=== PATIENT | male | born 1950 | race American Indian/Alaskan Native ===

== ENCOUNTER 2018-09-01 03:54 | Emergency (ER) | payer MEDICARE, MEDICAID ==
[2018-09-01] MEDS ORDERED: Sodium Chloride 0.9% 1,000 ML IV SCH (04:15)
--- NOTE | 2018-09-01 04:18 | ED PDOC ---
Addendum entered and electronically signed by Radha Avendano MD 09/01/18 12:11: Addendum Addendum: 09/01/18 12:10 Dr. Burnham called back and is aware Original Note: Arrival/HPI <Radha Avendano - Last Filed: 09/01/18 12:10> - General Historian: Patient - History of Present Illness Narrative History of Present Illness (Text): 09/01/18 04:15 67 year old male, whose past medical history includes CVA, presents to the emergency department with nausea and dizziness. Patient states he suddenly found himself lightheaded. Patient also informs of having nausea at the same time, but denies any vomiting. Patient denies any fevers, chills, headache, chest pain, shortness of breath, cough, abdominal pain, diarrhea, back pain, neck pain, urinary/bowel changes, or any other complaint. Time/Duration: Prior to Arrival Context: Home <Jose A Ryder - Last Filed: 09/02/18 22:01> - General Chief Complaint: GI Problem Time Seen by Provider: 09/01/18 03:56 Past Medical History - Provider Review Nursing Documentation Reviewed: Yes - Cardiac Hx Hypertension: Yes - Neurological HX Cerebrovascular Accident: Yes (x2) - Hematological/Oncological Hx Hepatitis C: Yes - Psychiatric Hx Substance Use: No - Anesthesia Hx Anesthesia: No <Jose A Ryder - Last Filed: 09/02/18 22:01> Family/Social History - Physician Review Nursing Documentation Reviewed: Yes Family/Social History: No Known Family HX Smoking Status: Never Smoked Hx Alcohol Use: Yes Frequency of alcohol use: Daily Hx Substance Use: No <Jose A Ryder - Last Filed: 09/02/18 22:01> Allergies/Home Meds <Radha Avendano - Last Filed: 09/01/18 12:10> <Jose A Ryder - Last Filed: 09/02/18 22:01> Allergies/Adverse Reactions: Allergies No Known Allergies Allergy (Verified 09/02/18 08:29) Review of Systems - Physician Review All systems were reviewed & negative as marked: Yes - Review of Systems Constitutional: absent: Fevers, Night Sweats Respiratory: absent: SOB, Cough Cardiovascular: absent: Chest Pain Gastrointestinal: Nausea. absent: Abdominal Pain, Diarrhea, Vomiting Genitourinary Male: absent: Urinary Output Changes Musculoskeletal: absent: Back Pain, Neck Pain Neurological: Dizziness. absent: Headache <Jose A Ryder - Last Filed: 09/02/18 22:01> Physical Exam Vital Signs Temp Pulse Resp BP Pulse Ox 09/01/18 08:19 68 177/118 H 09/01/18 08:07 98.2 F 72 20 119/73 97 09/01/18 07:30 98.4 F 68 19 168/90 H 99 09/01/18 04:00 98.4 F 66 18 166/97 H 99 <Radha Avendano - Last Filed: 09/01/18 12:10> Vital Signs Reviewed: Yes Vital Signs Temp Pulse Resp BP Pulse Ox 09/01/18 04:00 98.4 F 66 18 166/97 H 99 Temperature: Afebrile Blood Pressure: Hypertensive Pulse: Regular Respiratory Rate: Normal Appearance: Positive for: Well-Appearing, Non-Toxic, Comfortable Pain Distress: None Mental Status: Positive for: Alert and Oriented X 3 - Systems Exam Head: Present: Atraumatic, Normocephalic Pupils: Present: PERRL Extroacular Muscles: Present: EOMI Conjunctiva: Present: Normal Mouth: Present: Moist Mucous Membranes Neck: Present: Normal Range of Motion Respiratory/Chest: Present: Clear to Auscultation, Good Air Exchange. No: Respiratory Distress, Accessory Muscle Use Cardiovascular: Present: Regular Rate and Rhythm, Normal S1, S2. No: Murmurs Abdomen: No: Tenderness, Distention, Peritoneal Signs Back: Present: Normal Inspection Upper Extremity: Present: Normal Inspection. No: Cyanosis, Edema Lower Extremity: Present: Normal Inspection. No: Edema Neurological: Present: Speech Normal Skin: Present: Warm, Dry, Normal Color. No: Rashes Psychiatric: Present: Alert, Oriented x 3, Normal Insight, Normal Concentration <Jose A Ryder - Last Filed: 09/02/18 22:01> Medical Decision Making ED Course and Treatment: 09/01/18 09:[address] Ryder as pending u/s. CT was ordered for hematuria and was preliminary read was negative. Final read is as follows.... PROCEDURE: CT Abdomen and Pelvis without intravenous contrast FINDINGS: LOWER THORAX: Unremarkable. LIVER: Unremarkable. No gross lesion or ductal dilatation. GALLBLADDER AND BILE DUCTS: Cholelithiasis. No mural thickening or pericholecystic fluid. PANCREAS: Unremarkable. No gross lesion or ductal dilatation. SPLEEN: Unremarkable. ADRENALS: Unremarkable. No mass. KIDNEYS AND URETERS: Right lower pole renal cortical cyst, 2.0 cm. This measures 12 Hounsfield units attenuation. No left renal mass. No calculus or hydronephrosis. No hydroureter or ureteral calculus. VASCULATURE: Unremarkable. No aortic aneurysm. Minimal calcified atheromatous plaque of the aorta and iliac vessels BOWEL: Unremarkable. No obstruction. No gross mural thickening. APPENDIX: Unremarkable. Normal appendix. PERITONEUM: Unremarkable. No free fluid. No free air. LYMPH NODES: Unremarkable. No enlarged lymph nodes. BLADDER: Unremarkable. REPRODUCTIVE: Mildly enlarged prostate. BONES: Widespread sclerotic lesions consistent with metastatic disease of uncertain origin. There is extensive involvement of the T10 vertebra and posterior element small on the left side. Smaller metastases are seen throughout all of the visualized osseous structures. OTHER FINDINGS: None. IMPRESSION: Low-density right lower pole renal mass most likely cyst. Correlate with ultrasound examination particularly in light of history of hematuria. Widespread sclerotic metastases of uncertain origin. Further evaluation advised. Cholelithiasis without evidence of cholecystitis. No evidence of urinary calculus or urinary tract obstruction. The preliminary findings for this examination were reported by [facility] at 6:17 a.m. on 09/01/2018. There is discordance of this report with the preliminary findings. Presence of sclerotic bony metastasis was not described in the preliminary report of this examination. Findings in this report were discussed by telephone with Dr. Avendano at 9:47 a.m. on 09/01/2018. 09/01/18 10:05 U/S IMPRESSION: Bilateral simple renal cortical cyst. Cholelithiasis without evidence of cholecystitis. No additional abnormality. 09/01/18 10:10 Spoke to patient in presence of nurse Dixon. Patient reports that he presented for back pain and vomiting that is now resolved. Denies weakness, numbness, tingling, bladder or bowel incontinence. Told patient that he has cancer in his bones with unknown primary origin. Based on history of enlarged prostate and hematuria, think cancer is likely prostate. Placed called to PMD Dr. Crawford for further recommendations. Paged Dr. Burnham as patient was referrred to [place] for CT by him. Patient reports baseline creatinine of 5. 09/01/18 10:[address] Crawford called back. He was made aware of metastatic cancer diagnosis,. He reports that patient has refused biopsy of prostate for years. Reports that he has Hep c and HIV. Agrees that with baseline labs and neurologically intact, can be discharged with oncologist Dr. Benito and Dr. burnham follow-up - Lab Interpretations Lab Results: 09/01/18 05:17 09/01/18 05:17 Lab Results 09/01/18 07:26: Blood Type Confirm AB POSITIVE 09/01/18 05:17: Sodium 139, Potassium 4.9, Chloride 104, Carbon Dioxide 24, Anion Gap 16, BUN 46 H, Creatinine 6.2 H, Est GFR ( Amer) 11, Est GFR (Non-Af Amer) 9, Random Glucose 107, Calcium 10.0, Total Bilirubin 0.4, AST 40, ALT 17, Alkaline Phosphatase 85, Troponin I 0.01, Total Protein 8.6 H, Albumin 4.7, Globulin 4.0, Albumin/Globulin Ratio 1.2, Triglycerides 78, Cholesterol 198, LDL Cholesterol Direct 75, HDL Cholesterol 98 H 09/01/18 05:17: PT 10.6, INR 0.92, APTT 25.5 09/01/18 05:17: WBC 4.0 L, RBC 3.84, Hgb 12.5 L, Hct 37.0 L, MCV 96.4, MCH 32.6, MCHC 33.8, RDW 12.9, Plt Count 171, MPV 8.9, Gran % 66.1, Lymph % (Auto) 26.8, Cottle % (Auto) 4.3, Eos % (Auto) 2.3, Baso % (Auto) 0.5, Gran # 2.62, Lymph # (Auto) 1.1 L, Cottle # (Auto) 0.2, Eos # (Auto) 0.1, Baso # (Auto) 0.02 09/01/18 04:40: Urine Color Yellow, Urine Appearance Clear, Urine pH 7.0, Ur Specific [place] 1.015, Urine Protein 100 H, Urine Glucose (UA) Negative, Urine Ketones Negative, Urine Blood Moderate H, Urine Nitrate Negative, Urine Bilirubin Negative, Urine Urobilinogen 0.2, Ur Leukocyte Esterase Negative, Urine RBC 10 - 15, Urine WBC 0 - 2, Ur Epithelial Cells 0 - 2, Urine Bacteria None 09/01/18 04:12: Blood Type AB POSITIVE, Antibody Screen Negative, BBK History Checked No verified bt - RAD Interpretation Radiology Orders: 09/01/18 04:12 HEAD W/O CONTRAST [CT] Stat 09/01/18 04:13 CHEST TWO VIEWS (PA/LAT) [RAD] Stat 09/01/18 05:35 ABD & PELVIS W/O PO OR IV CONT [CT] Stat 09/01/18 06:32 ABDOMEN COMPLETE [US] Stat - Medication Orders Current Medication Orders: Sodium Chloride (Sodium Chloride 0.9%) 1,000 mls @ 100 mls/hr IV .Q10H CK Last Admin: 09/01/18 05:28 Dose: 100 mls/hr eMAR Start Stop Document 09/01/18 05:28 SS (Rec: 09/01/18 05:28 SS [id number]) Intravenous Solution Start Date 09/01/18 Start Time 05:28 Discontinued Medications Amlodipine Besylate (Norvasc) 10 mg PO STAT STA Stop: 09/01/18 08:08 Last Admin: 09/01/18 08:19 Dose: 10 mg MAR Blood Pressure Document 09/01/18 08:19 (Rec: 09/01/18 08:19 EB [id number]) Blood Pressure Blood Pressure (100/60-150/90) 177/118 Lisinopril (Zestril) 20 mg PO STAT STA Stop: 09/01/18 08:08 Last Admin: 09/01/18 08:19 Dose: 20 mg MAR Pulse and Blood Pressure Document 09/01/18 08:19 EB (Rec: 09/01/18 08:19 EB [id number]) Pulse Pulse Rate (60-90) 68 Blood Pressure Blood Pressure (100/60-150/90) 177/118 Ondansetron HCl (Zofran Inj) 4 mg IVP STAT STA Stop: 09/01/18 04:14 Last Admin: 09/01/18 05:28 Dose: 4 mg IVP Administration Document 09/01/18 05:28 SS (Rec: 09/01/18 05:28 SS [id number]) Charges for Administration # of IVP Administrations 1 <Radha Avendano A - Last Filed: 09/01/18 12:10> ED Course and Treatment: 09/01/18 04:21 Impression: 67 year old male presents with dizziness and nausea. Plan: -- Head CT -- Labs -- EKG -- Zofran -- Urinalysis -- Reassess and disposition Progress Notes: 09/01/18 05:54 CT scan of the head. CLINICAL HISTORY: Dizziness TECHNIQUE: Multiple axial CT images were obtained through the brain without IV contrast material. COMMENTS: There is normal configuration of sella turcica. There are no intra or extra- axial collections. There is no mass effect or midline shift. There is no justyn dence of hematoma formation. No hydrocephalus is present. The ventricles are symmetrical. No abnormal calcifications are present. There is diffuse age-appropriate cerebellar and cerebral atrophy with proportionally dilated ventricles and cortical sulci. There are bilateral periventricular and subcortical white matter hypolucencies compatible with mild chronic microvascular disease. Otherwise, no significant focal abnormalities are seen either in the posterior fossa or supratentorial compartment. IMPRESSION: 1. Age-appropriate cerebellar and cerebral atrophy. 2. Mild chronic microvascular disease. 3. No evidence of acute intracranial pathology. 09/01/18 06:20 CT Abdomen and Pelvis reviewed, shows: The visualized lung bases are unremarkable. Normal unenhanced liver. Cholelithiasis and nondilated extrahepatic biliary system. Normal unenhanced spleen. Normal pancreas. Normal bilateral adrenal glands. Normal size of the right kidney. There is no right renal mass. There are no right renal calculi. There is no right hydronephrosis. Normal visualized right ureter. Normal size of the left kidney. There is no left renal mass. There are no left renal calculi. There is no left hydronephrosis. Normal visualized left ureter. Normal visualized stomach. Normal small intestine. Uncomplicated diverticulosis of the colon. The appendix is visualized and appears normal. There is no demonstrated peritoneal fluid. Normal abdominal aorta. Normal inferior vena cava. Normal retroperitoneum. Normal urinary bladder. There is no pelvic mass lesion or lymphadenopathy. There is no pelvic fluid. Moderate prostatomegaly. Normal abdominal wall. Normal osseous structures. IMPRESSION: Moderate prostatomegaly. No urolithiasis is seen. Electronically signed on Sep 01, 2018 6:17:58 AM EDT by: Bobby Wilhelm M.D., Certified by ABR, MSK, Neuroradiology - RAD Interpretation Radiology Orders: 09/01/18 04:12 HEAD W/O CONTRAST [CT] Stat 09/01/18 04:13 CHEST TWO VIEWS (PA/LAT) [RAD] Stat - Medication Orders Current Medication Orders: Sodium Chloride (Sodium Chloride 0.9%) 1,000 mls @ 100 mls/hr IV .Q10H CK Ondansetron HCl (Zofran Inj) 4 mg IVP STAT STA Stop: 09/01/18 04:14 <AlekseyJose A - Last Filed: 09/02/18 22:01> - Scribe Statement The provider has reviewed the documentation as recorded by the Scribe Tono Mchugh Provider Scribe Attestation: All medical record entries made by the Scribe were at my direction and personally dictated by me. I have reviewed the chart and agree that the record accurately reflects my personal performance of the history, physical exam, medical decision making, and the department course for this patient. I have also personally directed, reviewed, and agree with the discharge instructions and disposition. <AlekseyJose A - Last Filed: 09/02/18 22:01> Disposition/Present on Arrival - Present on Arrival Any Indicators Present on Arrival: No - Disposition Have Diagnosis and Disposition been Completed?: Yes Disposition Time: 10:43 Patient Plan: Discharge <DollydanielRadha Dinora - Last Filed: 09/01/18 12:10> - Present on Arrival Any Indicators Present on Arrival: No History of DVT/PE: No History of Uncontrolled Diabetes: No Urinary Catheter: No History of Decub. Ulcer: No History Surgical Site Infection Following: None - Disposition Have Diagnosis and Disposition been Completed?: Yes <AlekseyJose A - Last Filed: 09/02/18 22:01> - Disposition Diagnosis: Renal insufficiency, Bone metastasis, Enlarged prostate, Hematuria, Metastatic cancer Disposition: HOME/ ROUTINE Condition: GOOD Discharge Instructions (ExitCare): Chronic Kidney Disease, Bone Metastasis Additional Instructions: Follow-up with Dr. Crawford for further mgmt of your metastatic cancer. You must follow-up with Dr. Benito who is an oncologist and who can help manage your cancer. Follow-up with Dr. Burnham for further evaluation. Return to ED immediately with any worsening symptoms. Referrals: Pérez Crawford MD [Primary Care Provider] - Follow up with primary Rommel Burnham MD [Staff Provider] - Follow up with primary Forms: [employer] ([place]rainian)
[2018-09-01 05:31] LABS: URINE BILIRUBIN NEGATIVE (NEGATIVE); URINE BLOOD MODERATE (NEGATIVE); URINE GLUCOSE (UA) NEGATIVE (NEGATIVE); URINE LEUKOCYTE ESTERASE NEGATIVE Leu/uL (NEGATIVE); URINE PROTEIN 100 mg/dL (<30 mg/dL); URINE UROBILINOGEN 0.2 E.U./dL (<1 E.U./dL)
[2018-09-01 05:33] LABS: URINE APPEARANCE CLEAR (CLEAR); URINE COLOR YELLOW (YELLOW)
[2018-09-01 05:44] LABS: INR 0.92; PARTIAL THROMBOPLASTIN TIME 25.5 Seconds (25.1-36.5); PROTHROMBIN TIME 10.6 SECONDS (9.4-12.5)
[2018-09-01 05:45] LABS: ALB/GLOB RATIO 1.2 (1.1-1.8); ALBUMIN 4.7 g/dL (3.0-4.8)
[2018-09-01 05:49] LABS: BASO # 0.02 K/mm3 (0.0-2.0); BASO % 0.5 % (0.0-3.0); EOS # 0.1 (0.0-0.7); EOS % 2.3 % (1.5-5.0); GRAN # 2.62 (1.4-6.5); GRAN % 66.1 % (50.0-68.0); HEMOGLOBIN 12.5 g/dL (14.0-18.0); LYMPH # 1.1 (1.2-3.4); LYMPH % 26.8 % (22.0-35.0); MEAN CELL VOLUME 96.4 fl (80.0-105.0); MEAN CORPUSCULAR HEMOGLOBIN 32.6 pg (25.0-35.0); MEAN CORPUSCULAR HGB CONC 33.8 g/dl (31.0-37.0); MEAN PLATELET VOLUME 8.9 fl (7.0-11.0); MONO # 0.2 (0.1-0.6); MONO % 4.3 % (1.0-6.0); RBC 3.84 10^6/uL (3.5-6.1); RED CELL DISTRIBUTION WIDTH 12.9 % (11.5-14.5)
[2018-09-01 05:59] LABS: TROPONIN I 0.01 ng/mL
[2018-09-01 06:04] LABS: URINE EPITHELIAL CELLS 0 - 2 /hpf (0-5); URINE WBC 0 - 2 /hpf (0-6)
--- NOTE | 2018-09-01 08:21 | CARD ---
APPROVED REPORT Date of service: 09/01/2018 EKG Measurement Heart [id number] MA [id number] <Conclusion> Sinus bradycardia Left axis deviation Voltage criteria for left ventricular hypertrophy ASMI, age unknown Peaked T waves V 3 - 4, consider acute ischemia and hyperkalemia
--- NOTE | 2018-09-01 08:44 | CT ---
Date of service: 09/01/2018 PROCEDURE: CT HEAD WITHOUT CONTRAST. HISTORY: dizzy COMPARISON: None available. TECHNIQUE: Axial computed tomography images were obtained through the head/brain without intravenous contrast. Radiation dose: Total exam DLP = 864.22 mGy-cm. This CT exam was performed using one or more of the following dose reduction techniques: Automated exposure control, adjustment of the mA and/or kV according to patient size, and/or use of iterative reconstruction technique. FINDINGS: HEMORRHAGE: No intracranial hemorrhage. BRAIN: No mass effect or edema. Mild periventricular white matter lucency consistent with chronic microvascular ischemic change. No evidence of acute infarct. VENTRICLES: Unremarkable. No hydrocephalus. CALVARIUM: Unremarkable. PARANASAL SINUSES: Unremarkable as visualized. No significant inflammatory changes. MASTOID AIR CELLS: Unremarkable as visualized. No inflammatory changes. OTHER FINDINGS: None. IMPRESSION: No acute abnormality. Mild chronic microvascular white matter ischemic change. Otherwise unremarkable examination. The preliminary findings for this examination were reported by [facility] at 5:34 a.m. on 09/01/2018. There is concurrence of this report with the preliminary findings.
--- NOTE | 2018-09-01 09:53 | CT ---
Date of service: 09/01/2018 PROCEDURE: CT Abdomen and Pelvis without intravenous contrast HISTORY: hematuria COMPARISON: None. TECHNIQUE: Without contrast.. Contrast dose: 0 Radiation dose: Total exam DLP = 653.61 mGy-cm. This CT exam was performed using one or more of the following dose reduction techniques: Automated exposure control, adjustment of the mA and/or kV according to patient size, and/or use of iterative reconstruction technique. FINDINGS: LOWER THORAX: Unremarkable. LIVER: Unremarkable. No gross lesion or ductal dilatation. GALLBLADDER AND BILE DUCTS: Cholelithiasis. No mural thickening or pericholecystic fluid. PANCREAS: Unremarkable. No gross lesion or ductal dilatation. SPLEEN: Unremarkable. ADRENALS: Unremarkable. No mass. KIDNEYS AND URETERS: Right lower pole renal cortical cyst, 2.0 cm. This measures 12 Hounsfield units attenuation. No left renal mass. No calculus or hydronephrosis. No hydroureter or ureteral calculus. VASCULATURE: Unremarkable. No aortic aneurysm. Minimal calcified atheromatous plaque of the aorta and iliac vessels BOWEL: Unremarkable. No obstruction. No gross mural thickening. APPENDIX: Unremarkable. Normal appendix. PERITONEUM: Unremarkable. No free fluid. No free air. LYMPH NODES: Unremarkable. No enlarged lymph nodes. BLADDER: Unremarkable. REPRODUCTIVE: Mildly enlarged prostate. BONES: Widespread sclerotic lesions consistent with metastatic disease of uncertain origin. There is extensive involvement of the T10 vertebra and posterior element small on the left side. Smaller metastases are seen throughout all of the visualized osseous structures. OTHER FINDINGS: None. IMPRESSION: Low-density right lower pole renal mass most likely cyst. Correlate with ultrasound examination particularly in light of history of hematuria. Widespread sclerotic metastases of uncertain origin. Further evaluation advised. Cholelithiasis without evidence of cholecystitis. No evidence of urinary calculus or urinary tract obstruction. The preliminary findings for this examination were reported by [facility] at 6:17 a.m. on 09/01/2018. There is discordance of this report with the preliminary findings. Presence of sclerotic bony metastasis was not described in the preliminary report of this examination. Findings in this report were discussed by telephone with Dr. Avendano at 9:47 a.m. on 09/01/2018.
--- NOTE | 2018-09-01 10:07 | US ---
Date of service: 09/01/2018 HISTORY: abd pain COMPARISON: CT abdomen/pelvis 09/01/2018 TECHNIQUE: Sonographic evaluation of the abdomen. FINDINGS: LIVER: Measures 15.1 cm. Diffusely increased echogenicity of the liver parenchyma. Consistent with fatty infiltration. No mass. No intrahepatic biliary ductal dilatation. Smooth contour. Normal hepatopetal portal venous flow. GALLBLADDER: Cholelithiasis. No mural thickening. No pericholecystic fluid. Negative sonographic Davila sign. COMMON BILE DUCT: Measures 5 mm. No stones. No dilatation. PANCREAS: Unremarkable as visualized. No mass. No ductal dilatation. RIGHT KIDNEY: Measures 9.7cm. Normal cortical thickness and echogenicity. Lower pole cortical cyst, 2.0 cm. No other mass. No hydronephrosis. No calculus. LEFT KIDNEY: Measures 8.8cm. Normal cortical thickness and echogenicity. Upper pole simple cortical cyst, 1.6 cm. No solid mass. No calculus. No hydronephrosis. SPLEEN: Normal in size and contour. No mass. AORTA: No aneurysmal dilatation. IVC: Unremarkable. OTHER FINDINGS: None. IMPRESSION: Bilateral simple renal cortical cyst. Cholelithiasis without evidence of cholecystitis. No additional abnormality.
[2018-09-01 10:53] VITALS: TEMP 98.2; O2SAT 97; BMI 31.3
[2018-09-01 11:46] VITALS: BP 155/99; PULSE 81; RESP 19
--- NOTE | 2018-09-01 13:02 | RAD ---
Date of service: 09/01/2018 HISTORY: dizzy COMPARISON: No prior. TECHNIQUE: Chest PA and lateral FINDINGS: LUNGS: Minimal linear scar/atelectasis at left base. No pulmonary infiltrate. PLEURA: No significant pleural effusion identified. No pneumothorax apparent. CARDIOVASCULAR: No aortic atherosclerotic calcification present OSSEOUS STRUCTURES: No significant abnormalities. VISUALIZED UPPER ABDOMEN: Normal. OTHER FINDINGS: None. IMPRESSION: No active disease.
== END 2018-09-01 11:02 | disposition home or self-care (01) ==
LOC: ED 03:54 → MERGE 03:54 → ED 11:02
DX: N28.89 Other specified disorders of kidney and ureter (principal); N40.0 Benign prostatic hyperplasia without lower urinary tract symptoms; R31.9 Hematuria, unspecified; C79.51 Secondary malignant neoplasm of bone; I10 Essential (primary) hypertension; Z86.73 Personal history of transient ischemic attack (TIA), and cerebral infarction without residual deficits
CPT/HCPCS: 70450; 71046; 74176; 76700; 80053; 80061; 81001; 83036; 84484; 85025; 85610; 85730; 86850; 86900; 93005; 96374; 99284; J2405; J7030

== ENCOUNTER 2018-11-30 08:21 | Outpatient (CLI) | payer MEDICARE, MEDICAID | END 2018-11-30 08:22 | disposition home or self-care (01) | LOC: RAD 08:21 ==

== ENCOUNTER 2019-04-09 10:35 | Emergency (ER) | payer MEDICARE, MEDICAID ==
[2019-04-09 10:35] VITALS: BMI 31.3
[2019-04-09 10:43] VITALS: BP 141/80; PULSE 78; RESP 18; TEMP 99; O2SAT 98
--- NOTE | 2019-04-09 10:46 | ED PDOC ---
Arrival/HPI - General Chief Complaint: Cough, Cold, Congestion Time Seen by Provider: 04/09/19 10:36 Historian: Patient - History of Present Illness Narrative History of Present Illness (Text): 04/09/19 10:53 68-year-old male presents today with a one-week history of nasal congestion, sore throat and a 3-day history of cough with a yellow and white sputum. Patient denies shortness of breath. No chest pain. Patient denies fevers. No abdominal pain. No diarrhea. No vomiting. Patient denies sick contacts. No other complaints. Time/Duration: 1 week Symptom Onset: Gradual Symptom Course: Worsening Severity Level: Mild Past Medical History - Provider Review Nursing Documentation Reviewed: Yes - Travel History Have you recently traveled outside [place] w/in the past 3 mons?: No - Cardiac Hx Cardiac Disorders: Yes Hx Hypertension: Yes - Pulmonary Hx Respiratory Disorders: No - Neurological HX Cerebrovascular Accident: Yes ( X2 2 YEARS AGO ) - HEENT Hx HEENT Disorder: No - Renal Hx Renal Disorder: Yes (RENAL INSUFFICIENCY) Hx Kidney Stones: Yes (PASSED WITHOUT INTERVENTION) Other/Comment: Left AV shunt - Endocrine/Metabolic Hx Endocrine Disorders: No - Hematological/Oncological Hx AIDS: Yes Hx Cancer: Yes (Bone cancer) Hx Hepatitis C: Yes (RECIEVED TREATMNET INREMISSION) - Integumentary Hx Dermatological Disorder: Yes (PRURITUS) - Musculoskeletal/Rheumatological Hx Musculoskeletal Disorders: No - Gastrointestinal Hx Gastrointestinal Disorders: No - Genitourinary/Gynecological Hx Genitourinary Disorders: Yes Hx Prostate Problems: Yes - Psychiatric Hx Psychophysiologic Disorder: Yes 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) - Surgical History Other/Comment: Left Av shunt - Anesthesia Hx Anesthesia: Yes Hx Anesthesia Reactions: No Hx Malignant Hyperthermia: No Family/Social History - Physician Review Nursing Documentation Reviewed: Yes Family/Social History: Unknown Family HX Smoking Status: Never Smoked Hx Alcohol Use: Yes Frequency of alcohol use: Daily 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) Allergies/Home Meds Allergies/Adverse Reactions: Allergies No Known Allergies Allergy (Verified 04/09/19 10:43) Home Medications: Home Meds Medication Instructions Recorded Confirmed Abacavir [Ziagen] 300 mg PO DAILY 12/01/18 04/09/19 Atorvastatin [Lipitor] 10 mg PO DAILY 12/01/18 04/09/19 Calcitriol 0.5 mcg PO DAILY 12/01/18 04/09/19 Dolutegravir Sodium [Tivicay] 50 mg PO DAILY 12/01/18 04/09/19 Lamivudine 150 mg PO DAILY 12/01/18 04/09/19 Losartan Potassium 50 mg PO DAILY 12/01/18 04/09/19 Pantoprazole Sodium [Protonix] 40 mg PO DAILY 12/01/18 04/09/19 Sodium Bicarbonate Tab 650 mg PO BID 12/01/18 04/09/19 Tamsulosin [Flomax] 0.4 mg PO DAILY 12/01/18 04/09/19 amLODIPine [Norvasc] 10 mg PO DAILY 12/01/18 04/09/19 Review of Systems - Review of Systems Constitutional: absent: Fatigue, Fevers ENT: Sore Throat, Sinus Congestion Respiratory: Cough, Sputum. absent: SOB, Wheezing Cardiovascular: absent: Chest Pain, Palpitations Gastrointestinal: absent: Abdominal Pain, Nausea, Vomiting Genitourinary Male: absent: Dysuria Musculoskeletal: absent: Arthralgias Skin: absent: Rash Neurological: absent: Headache, Dizziness Psychiatric: absent: Anxiety, Depression Physical Exam Vital Signs Reviewed: Yes Vital Signs Temp Pulse Resp BP Pulse Ox 04/09/19 10:41 99 F 78 18 141/80 98 Temperature: Afebrile Blood Pressure: Normal Pulse: Regular Respiratory Rate: Normal Appearance: Positive for: Well-Appearing, Non-Toxic, Comfortable Pain Distress: None Mental Status: Positive for: Alert and Oriented X 3 - Systems Exam Head: Present: Atraumatic Conjunctiva: Present: Normal Ears: Present: Normal, NORMAL TM Mouth: Present: Moist Mucous Membranes, Normal Lips, Normal Tounge. No: Drooling, Trismus Pharnyx: Present: Normal. No: EXUDATE, Peritonsilar Swelling, Uvular Deviation, Muffled/Hoarse Voice Nose (External): Present: Atraumatic Nose (Internal): Present: Normal Inspection Neck: Present: Normal Range of Motion, Trachea Midline Respiratory/Chest: Present: Clear to Auscultation, Good Air Exchange. No: Respiratory Distress, Accessory Muscle Use Cardiovascular: Present: Regular Rate and Rhythm, Normal S1, S2. No: Murmurs Abdomen: No: Tenderness Neurological: Present: GCS=15, Speech Normal Skin: Present: Warm, Dry, Normal Color. No: Rashes Psychiatric: Present: Alert, Oriented x 3 Medical Decision Making ED Course and Treatment: 04/09/19 10:55 68yr old male with cough, nasal congestion and sore throat. afebrile. no distress. speaking in full sentences. cxr; WNL will start patient on Zithromax I advised follow up with primary care physician within the next 2 days. I advised increase fluids and return if symptoms worsen persist or if new symptoms develop. Patient verbalizes understanding of discharge instructions and need for immediate followup. All aspects of this case were discussed the attending of record. IMPRESSION; cough Zithromax one tablet once daily x4 days FLonase; 2 sprays each nostril once daily. Increase fluids Followup with primary care physician the next 2 days Return if symptoms worsen persist or if new symptoms develop 04/09/19 11:51 - RAD Interpretation Radiology Orders: 04/09/19 10:43 CHEST TWO VIEWS (PA/LAT) [RAD] Stat Disposition/Present on Arrival - Present on Arrival Any Indicators Present on Arrival: No History of DVT/PE: No History of Uncontrolled Diabetes: No Urinary Catheter: No History of Decub. Ulcer: No History Surgical Site Infection Following: None - Disposition Have Diagnosis and Disposition been Completed?: Yes Diagnosis: Cough Disposition: HOME/ ROUTINE Disposition Time: 10:46 Patient Plan: Discharge Patient Problems: Current Active Problems Problem Status Onset Cough Acute Condition: GOOD Discharge Instructions (ExitCare): Cough, Adult (DC) Additional Instructions: Zithromax one tablet once daily x4 days FLonase; 2 sprays each nostril once daily. Increase fluids Followup with primary care physician the next 2 days Return if symptoms worsen persist or if new symptoms develop Prescriptions: Azithromycin [Zithromax] 250 mg PO DAILY #4 tab Fluticasone Nasal [Flonase] 2 spr NS DAILY #1 spr Referrals: Franco Theodore MD [Staff Provider] - Follow up with primary Ada Hawkins MD [Medical Doctor] - Follow up with primary [facility] [Outside] - Follow up with primary Forms: [facility] (Slovak), WORK NOTE
--- NOTE | 2019-04-09 11:48 | RAD ---
Date of service: 04/09/2019 HISTORY: cough x 3 days COMPARISON: Chest radiograph dated 09/01/2018. TECHNIQUE: Chest PA and lateral views FINDINGS: LUNGS: No active pulmonary disease. PLEURA: No significant pleural effusion identified. No pneumothorax apparent. CARDIOVASCULAR: No aortic atherosclerotic calcification present. Cardiomegaly. OSSEOUS STRUCTURES: Sclerosis of T10 compatible with known bone metastases. VISUALIZED UPPER ABDOMEN: Normal. OTHER FINDINGS: None. IMPRESSION: No active disease.
== END 2019-04-09 12:19 | disposition home or self-care (01) ==
LOC: ED 10:35
DX: R05 Cough (principal); I10 Essential (primary) hypertension; Z21 Asymptomatic human immunodeficiency virus [HIV] infection status; Z86.73 Personal history of transient ischemic attack (TIA), and cerebral infarction without residual deficits